=== PATIENT | female | born 1975 | race Caucasian/White ===

== ENCOUNTER 2024-02-06 02:33 | Inpatient (IN) | payer MEDICAID ==
[~2024-02-06] VITALS: Ht 162.6 cm; Wt 129.8 kg
[2024-02-06] VITALS (9 sets, daily range): BP systolic 108–125; BP diastolic 53–88; PULSE 74–83; RESP 13–21; TEMP 97.7–99.1; O2SAT 95–100
--- NOTE | 2024-02-06 03:31 | ED.PDOC ---
Altered Mental Status HPI Comments 48-year-old female who came to ER for altered level consciousness. Per EMS, patient was noted by family members to be acting normal two night to go. Patient was noted to be sleeping all day today, and appears confused at times. Blood sugar on scene was 147. Upon arrival to the ER, noted blood pressure 85/38 mm Hg. Patient appears confused and she has no subjective complaints. She does have a history of high blood pressure and chronic kidney failure Chief Complaint: ALOC Time Seen by MD: 03:30 Primary Care Provider: UNKNOWN Reviewed Notes: Nurses Notes Allergies: Coded Allergies: Erythromycin (Unverified Allergy, Unknown, 06/06/15) Meloxicam (Unverified Allergy, Unknown, 06/06/15) Penicillins (Unverified Allergy, Unknown, 06/06/15) Information Source: Patient Mode of Arrival: EMS Severity: Moderate Timing: Hours Duration: Since onset Prehospital treatment: None Quality: Decreased Alertness, Change in Behavior, Confusion Past Medical History PAST MEDICAL HISTORY: CKF, HTN Surgical History: Pt Confused H[employer] History: Pt Confused Family History Family History: Pt Confused Social History Smoker: Pt Confused Alcohol: Pt Confused Drugs: Pt Confused Lives In: Home Unable to Obtain due to: Altered Mental Status Physical Exam General Appearance: No Apparent Distress, Normal HEENT: Normal ENT Inspection, Pharynx Normal, TMs Normal Neck: Full Range of Motion, Non-Tender, Normal, Normal Inspection Respiratory: Chest Non-Tender, Lungs Clear, No Accessory Muscle Use, No Respiratory Distress, Normal Breath Sounds Cardiovascular: No Edema, No JVD, No Murmur, No Gallop, Normal Peripheral Pulses, Regular Rate/Rhythm Breast Exam: Deferred Gastrointestinal: No Organomegaly, Non Tender, No Pulsatile Mass, Normal Bowel Sounds, Soft Genitalia: Deferred Pelvic: Deferred Rectal: Deferred Extremities: No calf tenderness, Normal capillary refill, Normal inspection, Normal range of motion, Non-tender, No pedal edema Musculoskeletal : Apperance: Normal Neurologic: Alert, research & insights executive II-XII nml as Tested, No Motor Deficits, Normal Affect, Normal Mood, No Sensory Deficits Cerebellar Function: Normal Reflexes: Normal Skin: Dry, Normal Color, Warm Lymphatic: No Adenopathy Was a procedure done? Was a procedure done?: No Differential Diagnosis (ALOC) Differential Diagnosis: Encephalopathy, Hypoxemia, Seizure, CVA, Heart Failure, Renal Failure X-Ray, Labs, Meds, VS Vital Signs Date Time Temp Pulse Resp B/P (MAP) Pulse Ox O2 Delivery O2 Flow Rate FiO2 02/06/24 04:00 75 21 91/43 (59) 92 02/06/24 03:05 78 14 97 Nasal Cannula* 4 36 02/06/24 03:05 99.1 78 14 73/32 (46) 97 99.1 02/06/24 02:40 77 02/06/24 02:39 98.7 82 20 143/102 (116) 95 Lab Test 02/06/24 04:47 02/06/24 03:30 02/06/24 03:09 Range/Units White Blood Count Pending Red Blood Count Pending Hemoglobin Pending Hematocrit Pending Mean Corpuscular Volume Pending Mean Corpuscular Hemoglobin Pending Mean Corpuscular Hemoglobin Concent Pending Red Cell Distribution Width Pending Platelet Count Pending Mean Platelet Volume Pending Neutrophils (%) (Auto) Pending Lymphocytes (%) (Auto) Pending Monocytes (%) (Auto) Pending Basophils (%) (Auto) Pending Neutrophils # (Auto) Pending Lymphocytes # (Auto) Pending Monocytes # (Auto) Pending Troponin I High Sensitivity Pending 25 </=34 ng/L Sodium Level 135 L 136-145 mmol/L Potassium Level 3.9 3.5-5.1 mmol/L Chloride Level 106 98-107 mmol/L Carbon Dioxide Level 20 20-31 mmol/L Anion Gap 9 5-15 Blood Urea Nitrogen 32 H 9-23 mg/dL Creatinine 5.06 H 0.550-1.02 mg/dL Glomerular Filtration Rate Calc 10 >90 mL/min BUN/Creatinine Ratio 6.3 L 10.0-20.0 Serum Glucose 95 74-106 mg/dL Lactic Acid Level 1.4 0.4-2.0 mmol/L Calcium Level 8.8 8.7-10.4 mg/dL Total Bilirubin 0.3 0.2-1.0 mg/dL Aspartate Amino Transferase (AST) 127 H 13-40 U/L Alanine Aminotransferase (ALT) 28 7-40 U/L Alkaline Phosphatase 126 H 46-116 U/L Ammonia 21 11-32 umol/L Total Protein 7.0 5.7-8.2 g/dL Albumin 4.0 3.2-4.8 g/dL POC Glucose 100 70-106 mg/dl Current Medications Medications (Trade) Dose Ordered Sig/Sissy Route Start Time Stop Time Status Last Admin Sodium Chloride 1,000 ml @ 1,000 mls/hr Q1H ONCE IV 02/06/24 03:15 02/06/24 04:14 DC 02/06/24 03:34 Time of 1ST Reevaluation: 03:25 Reevaluation 1ST: Unchanged Patient Education/Counseling: Diagnosis, Treatment, Other (Patient altered) Family Education/Counseling: No Family Present Departure 1 Departure Time of Disposition: 05:18 (Patient with altered mental status and acute renal failure.If the patient's x-ray is concerning for volume overloadI reviewed the patient's EKGs concerning for sinus tachycardia. I reviewed patient's CBC and BNP is concerning for acute renal failure.Patient is critically ill and will be admitted to the hospital for further workup) Impression: Primary Impression: Acute renal failure Qualified Codes: N17.9 - Acute kidney failure, unspecified Additional Impressions: Metabolic encephalopathy Altered mental status Qualified Codes: R41.0 - Disorientation, unspecified Disposition: 09 ADMITTED INPATIENT Admit to: [facility] Condition: Guarded Critical Care Note Critical Care Time?: Yes (45 min-critical care time only) Critical care comment: Altered mental status Authorized and Performed by: Suzie Gamez MD Total critical care time: Approximately 38 minutes Due to a high probability of clinically significant, life threatening det erioration, the patient required my highest level of preparedness to intervene emergently and I personally spent this critical care time directly and personally managing the patient. This critical care time included obtaining a history; examining the patient; pulse oximetry; ordering and review of studies; arranging urgent treatment with development of a management plan; evaluation of patient's response to treatment; frequent reassessment; and, discussions with other providers. This critical care time was performed to assess and manage the high probability of imminent, life-threatening deterioration that could result in multi-organ failure. It was exclusive of separately billable procedures and treating other patients and teaching time. Please see my other sections and the rest of the note for further information on patient assessment and treatment. Stability Stability form required: No Heart Score Heart Score: Heart Score Response (Comments) Value History N/A 0 EKG N/A 0 Age N/A 0 Risk Factors N/A 0 Troponin N/A 0 Total 0 I personally scribed for SUZIE GAMEZ MD ([email or web address]) on 02/06/24 at 03:30. Electronically submitted by Javi Soares ([facility]). SUZIE GAMEZ MD Feb 06, 2024 03:30
[2024-02-06] MEDS: SODIUM CHLORIDE 0.9% 1,000 ML IV ONE ×2 (03:34→05:53)
[2024-02-06 03:53] LABS: Alanine Aminotransferase 28 U/L (7-40); Alkaline Phosphatase 126 U/L (46-116); Anion Gap 9 (5-15); Aspartate Aminotransferase 127 U/L (13-40); BUN/Creatinine Ratio 6.3 (10.0-20.0); Blood Urea Nitrogen 32 mg/dL (9-23); Calcium 8.8 mg/dL (8.7-10.4); Carbon Dioxide 20 mmol/L (20-31); Chloride 106 mmol/L (98-107); Glucose 95 mg/dL (74-106); Potassium 3.9 mmol/L (3.5-5.1); Sodium 135 mmol/L (136-145)
[2024-02-06 03:54] LABS: Bilirubin, Total 0.3 mg/dL (0.2-1.0)
--- NOTE | 2024-02-06 05:06 | DVH ---
CHEST RADIOGRAPH Indication:ams Technique: Single frontal view of the chest was obtained Comparison: None FINDINGS: Lines and Tubes: None Lungs: Mild pulmonary congestion. Pleura: No effusion. No pneumothorax. Cardiomediastinal contours: Unremarkable Bones: No acute osseous abnormality. IMPRESSION: 1. Mild pulmonary congestion.
--- NOTE | 2024-02-06 05:17 | DVH ---
EXAM: CT HEAD WITHOUT CONTRAST INDICATION: ams TECHNIQUE: CT of the head without intravenous contrast. Radiation Dose : 1. Head: CT Dose: CTDI volume is 68 mGy. Dose-length product is 1333.3 mGy*cm The dose indicators for CT are the volume Computed Tomography (CT) Dose Index (CTDIvol) and the Dose Length Product (DLP), and are measured in units of mGy and mGy-cm, respectively. These indicators are not patient dose, but values generated from the CT scanner acquisition factors. The report includes radiation exposure data for exposures received during this examination. COMPARISON: None FINDINGS: There is no evidence of acute intracranial hemorrhage, extra-axial collection, mass effect, midline s hift, herniation or hydrocephalus. The ventricles, sulci and cisterns are age appropriate. The tejada-white differentiation is intact. Moderate mucosal opacification of the sphenoid sinus. The surrounding soft tissues and osseous structures are unremarkable. IMPRESSION: No acute intracranial abnormality. Moderate mucosal opacification of the sphenoid sinus. Radiation optimization: All CT scans at this facility use at least one of these dose optimization rhonda hniques: automated exposure control mA and/or kV adjustment per patient size (includes targeted exam s where dose is matched to clinical indication) or iterative reconstruction.
[2024-02-06] MEDS: CEFEPIME 2GM/50ML NS 50 ML IV ONE (05:53)
[2024-02-06] MEDS ORDERED: IBUPROFEN 600 MG TAB PO PRN (07:30)
[2024-02-06] MEDS: SODIUM CHLORIDE 0.9% 1,000 ML IV SCH ×2 (07:30→09:41)
[2024-02-06] MEDS ORDERED: DOCUSATE SOD 100 MG CAP PO PRN (07:30)
--- NOTE | 2024-02-06 07:41 | DVHHP2 ---
History of Present Illness Reason for Visit: Hypotension History of Present Illness The patient is a 48 years old female with past medical history of hypertension and chronic kidney failure who presented to [facility] ED for evaluation of altered level of consciousness. As reported by EMS, patient was noted by family members to be acting abnormal, was noted to be sleeping all day today, and appears confused at times. Patient was seen and evaluated in the ED, laboratory data shows sodium 135, potassium three nine, BUN 32, creatinine 5.06, glucose 95, troponin 24, ammonia 21 AST 127, ALT 28, blood pressure 78/37, heart rate 68, temperature 99.1 F, O2 saturation 92% on oxygen. Head CT showed no acute intracranial abnormality, chest x-ray revealing mild pulmonary congestion. Patient was given fluid normal saline bolus, started on midodrine, please see medication orders section in the computer. On my assessment, patient remains lethargic, denies chest pain, no headache, no dizziness, no diaphoresis, currently on oxygen, no nausea, no vomiting, no fever, no chills. Patient was admitted for further evaluation medical management. Past Medical History CKF, HTN Past Surgical History Denies all surgeries Family History Reviewed, noncontributory to the management of this case. Past Social History The patient lives at home, denies smoking, alcohol or illicit drugs abuse. Review of Systems Constitutional: Yes: Weakness, Other (Fatigue); No: Fever, Chills, Sweats, Malaise Eyes: No: Pain, Vision change, Conjunctivae inflammation, Eyelid inflammation, Other, Redness ENT: No: Ear pain, Ear discharge, Nose pain, Nose discharge, Nose congestion, Mouth pain, Mouth swelling, Throat pain, Throat swelling, Other Respiratory: Shortness of breath, Other (SOB at rest); No: Cough, Dry, SOB with excertion, Wheezing, Hemoptysis, Pleuritic Pain, Sputum, Wheezing Cardiovascular: No: Chest Pain, Palpitations, Orthopnea, Paroxysmal Noc. Dyspn ea, Edema, Lt Headedness, Other Gastrointestinal: No: Nausea, Vomiting, Abdominal Pain, Diarrhea, Constipation, Melena, Hematochezia, Other Genitourinary: No Dysuria, No Frequency, No Incontinence, No Hematuria, No Retention, No Other Musculoskeletal: No: other, neck pain, shoulder pain, arm pain, back pain, hand pain, leg pain, foot pain Skin: No: Rash, Lesions, Jaundice, Bruising, Other Neurological: No: Weakness, Numbness, Incoordination, Change in speech, Confusion, Seizures, Other Allergies: Coded Allergies: Erythromycin (Unverified Allergy, Unknown, 06/06/15) Meloxicam (Unverified Allergy, Unknown, 06/06/15) Penicillins (Unverified Allergy, Unknown, 06/06/15) Medications Current Medications Medications Dose Ordered Sig/Sissy Route Start Time Stop Time Status Last Admin Dose Admin Sodium Chloride 1,000 ml @ 60 mls/hr [id number] IV 02/06/24 07:30 Acetaminophen/ Hydrocodone Bitart 1 tab Q4HP PRN PO 02/06/24 07:30 Ondansetron HCl 4 mg Q4HP PRN IV 02/06/24 07:30 Docusate Sodium 100 mg BIDPRN PRN PO 02/06/24 07:30 Ibuprofen 600 mg Q6HP PRN PO 02/06/24 07:30 Hold Midodrine 10 mg TID@0600,1200,1800 PO 02/06/24 12:00 Exam Vital Signs Vital Signs Date Time Temp Pulse Resp B/P (MAP) Pulse Ox O2 Delivery O2 Flow Rate FiO2 02/06/24 06:00 68 21 78/37 (51) 100 02/06/24 03:05 Nasal Cannula* 4 36 02/06/24 03:05 99.1 99.1 General Appearance: Alert, Cooperative, No acute distress, Other (Oriented x2) HEENT: Atraumatic, PERRLA, EOMI, Mucous membr. moist/pink Respiratory: Normal air movement, Other Cardiovascular: Regular rate, Normal S1, Normal S2, No murmurs Abdominal: Normal bowel sounds, Soft, No tenderness, No hepatospenomegaly, No masses Extremities: No clubbing, No cyanosis, No edema, Normal pulses, No tenderness/swelling Skin: No rashes, No breakdown, No significant lesion Neuro: Normal tone, Sensation intact, Cranial nerves 3-12 NL, Reflexes 2+, Other (Generalized weakness) Psych/Mental Status: Mood NL, Other (Altered mental status) Labs/Xrays Labs Test 02/06/24 04:47 02/06/24 03:30 02/06/24 03:09 Range/Units Troponin I High Sensitivity 24 </=34 ng/L Sodium Level 135 L 136-145 mmol/L Potassium Level 3.9 3.5-5.1 mmol/L Chloride Level 106 98-107 mmol/L Carbon Dioxide Level 20 20-31 mmol/L Anion Gap 9 5-15 Blood Urea Nitrogen 32 H 9-23 mg/dL Creatinine 5.06 H 0.550-1.02 mg/dL Glomerular Filtration Rate Calc 10 >90 mL/min BUN/Creatinine Ratio 6.3 L 10.0-20.0 Serum Glucose 95 74-106 mg/dL Lactic Acid Level 1.4 0.4-2.0 mmol/L Calcium Level 8.8 8.7-10.4 mg/dL Total Bilirubin 0.3 0.2-1.0 mg/dL Aspartate Amino Transferase (AST) 127 H 13-40 U/L Alanine Aminotransferase (ALT) 28 7-40 U/L Alkaline Phosphatase 126 H 46-116 U/L Ammonia 21 11-32 umol/L Total Protein 7.0 5.7-8.2 g/dL Albumin 4.0 3.2-4.8 g/dL POC Glucose 100 70-106 mg/dl PATIENT: ELIEZER MORENO ACCT: [id number] UNIT: [id number] : 1975 LOC: ER ROOM / BED: / AGE / SEX: 48 / F ADM STATUS: REG ER SERVICE 2 ORDERING PHYSICIAN: SUZIE CORDOVA MD PROCEDURE(s): HWOCT - HEAD WITHOUT CONTRAST REASON: [facility] ORDER NUMBER(s): [id number], ACCESSION NUMBER(s): [id number] EXAM: CT HEAD WITHOUT CONTRAST INDICATION: ams TECHNIQUE: CT of the head without intravenous contrast. Radiation Dose : 1. Head: CT Dose: CTDI volume is 68 mGy. Dose-length product is 1333.3 mGy*cm The dose indicators for CT are the volume Computed Tomography (CT) Dose Index (CTDIvol) and the Dose Length Product (DLP), and are measured in units of mGy and mGy-cm, respectively. These indicators are not patient dose, but values generated from the CT scanner acquisition factors. The report includes radiation exposure data for exposures received during this examination. COMPARISON: None FINDINGS: There is no evidence of acute intracranial hemorrhage, extra-axial collection, mass effect, midline shift, herniation or hydrocephalus. The ventricles, sulci and cisterns are age appropriate. The tejada-white differentiation is intact. Moderate mucosal opacification of the sphenoid sinus. The surrounding soft tissues and osseous structures are unremarkable. IMPRESSION: No acute intracranial abnormality. Moderate mucosal opacification of the sphenoid sinus. Assessment/Plan Assessment/Plan Acute renal failure Hypotension Metabolic encephalopathy Altered mental status Disorientation, unspecified Acute chronic renal failure Plan 1. Admit to step-down unit 2. Breathing treatment 3. Pain control management 4. Management of fluids and electrolytes 5. Consultation for Cardiology/Nephrology 6. Diagnostic tests head CT 7. DVT prophylaxis-on aspirin 8. Repeat labs CBC, CMP in a.m. 9. Continue with current medical management 10. Treatment plan discussed with patient and RN. Patient verbalized understanding. Plan discussed with: Patient, Other (RN) My Orders Orders - KIRBY MARQUES DNP Procedure Category Date Status Time * Cardiology Consult CONS 02/06/24 Transmitted 07:19 *[facility] CONS 02/06/24 Transmitted -[place] 07:19 Complete Blood Count LAB 02/06/24 Logged 07:19 Comprehensive LAB 02/06/24 Logged Metabolic Panel 07:19 Allergies CARMEN 02/06/24 In Process 07:19 Code Status CODE 02/06/24 Transmitted 07:19 Renal DIET 02/06/24 Transmitted Standard(2gna,3gk,Lopho) Breakfast Sodium Chloride 0.9% PHA 02/06/24 In Process 07:30 Oxygen Per Hour RT 02/06/24 Transmitted 07:19 Hydrocodone-Acet PHA 02/06/24 In Process 5/325mg Tab ([place] 07:30 Ondansetron Hcl PHA 02/06/24 In Process (Zofran) 07:30 Docusate Sodium PHA 02/06/24 In Process Capsule (Colace 07:30 Fall Risk Precautions CARMEN 02/06/[address] 07:19 Complete Blood Count LAB 02/07/24 Verified 04:00 Comprehensive LAB 02/07/24 Verified Metabolic Panel 04:00 Condition: Serious CARMEN 02/06/24 In Process 07:19 Sequential CARMEN 02/06/24 In Process Compression Device Ibuprofen Tablet PHA 02/06/24 In Process (Motrin Tablet) 07:30 Midodrine Tablet PHA 02/06/24 In Process (Proamatine Tablet) 12:00 Problem List: (1) Acute renal failure (2) Hypotension (3) Altered mental status (4) Metabolic encephalopathy (5) Acute on chronic renal failure (6) Disorientation, unspecified Date of Service: Feb 06, 2024 Billing Provider: KIRBY MARQUES DNP Common Visit Codes: 39883-AMLVPOM INP/OBS CARE (HIGH) KIRBY MARQUES DNP Feb 06, 2024 07:41
[2024-02-06] MEDS ORDERED: NITROGLYCERIN 0.4 MG SL TAB SL PRN (07:45)
[2024-02-06] MEDS: MIDODRINE HCL 10 MG TAB PO SCH (07:48)
[2024-02-06] MEDS: MIDODRINE HCL 10 MG TAB PO ONE (07:49)
[2024-02-06 08:57] LABS: Alanine Aminotransferase 38 U/L (7-40); Albumin 3.6 g/dL (3.2-4.8); Alkaline Phosphatase 123 U/L (46-116); Anion Gap 11 (5-15); Aspartate Aminotransferase 175 U/L (13-40); Bilirubin, Total 0.2 mg/dL (0.2-1.0); Blood Urea Nitrogen 29 mg/dL (9-23); Calcium 8.2 mg/dL (8.7-10.4); Carbon Dioxide 18 mmol/L (20-31); Chloride 107 mmol/L (98-107); Glucose 108 mg/dL (74-106); Sodium 136 mmol/L (136-145); Total Protein 6.6 g/dL (5.7-8.2)
[2024-02-06 09:26] LABS: Magnesium 1.9 mg/dL (1.6-2.6)
[2024-02-06 09:27] LABS: Phosphorus 7.6 mg/dL (2.4-5.1)
[2024-02-06] MEDS: ACETAMINOPHEN 325 MG TAB PO ONE (09:42)
[2024-02-06 09:49] LABS: Urine Blood 3+ /uL (Negative); Urine Clarity Ex.Turbid (Clear); Urine Color Light-Orange (Yellow); Urine Protein, UAD 2+ (Negative); Urine Specific Gravity 1.024 (1.001-1.035); Urine Urobilinogen Normal (Negative); Urine pH 5.5 (5.0-9.0)
[2024-02-06 09:52] LABS: Amphetamine Screen, Urine Neg (NEGATIVE); Protein, Urine 221.3 mg/dL (1-14)
[2024-02-06 09:53] LABS: Barbiturate Scree,Urine Neg (NEGATIVE); Benzodiazephine Screen, Urine Neg (NEGATIVE); Cocaine Screen, Urine Neg (NEGATIVE); Opiate Scree,Urine Neg (NEGATIVE); Phencyclidine Screen, Urine Neg (NEGATIVE)
[2024-02-06 09:54] LABS: Cannabinoid Screen, Urine Neg (NEGATIVE); Creatinine, Urine 201.52 mg/dL (30.0-125.0)
[2024-02-06 09:57] LABS: Urine Bacteria MANY /hpf (None Seen); Urine WBC MANY /hpf (0 - 5)
[2024-02-06 09:58] LABS: Urine Mucus FEW (None Seen)
[2024-02-06 10:04] LABS: Basophils # (auto) 0.1 10 ^3/uL (0-0.2); Platelet Count (auto) 407 10^3/uL (140-450)
[2024-02-06 10:07] LABS: Basophils % (auto) 0.4 % (0.0-2.0); Eosinophils # (auto) 0 10 ^3/uL (0-0.8); Eosinophils % (auto) 0.2 % (0.0-7.0); Hematocrit 22.6 % (36.0-46.0); Lymphocytes % (auto) 10.2 % (10.0-50.0); Mean Corpuscular Hemoglobin 20.4 pg (28.0-32.0); Mean Corpuscular Hgb Conc. 28.8 g/dL (32.0-36.0); Mean Corpuscular Volume 70.9 fL (80.0-100.0); Monocytes # (auto) 1.3 10 ^3/uL (0-1.3); Monocytes % (auto) 6.5 % (0.0-12.0); Neutrophils # (auto) 16.6 10 ^3/uL (1.6-8.6); Neutrophils % (auto) 82.7 % (37.0-80.0); Nucleated Red Blood Cells % 0.3 %; Red Blood Cells 3.19 10^6/uL (4.0-5.20)
[2024-02-06] MEDS: LIDOCAINE 5% TOPICAL PATCH TOP ONE (10:15)
--- NOTE | 2024-02-06 10:15 | ECG ---
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
--- NOTE | 2024-02-06 10:15 | DVH ---
INDICATION: 48 years old, Female; KIET on CKD. TECHNIQUE: Multiple real-time sonographic images of the kidneys and bladder were obtained. COMPARISON: None FINDINGS: The right kidney measures 13 cm in length, which is normal in size. There is normal echogenicity of t he right kidney. No hydronephrosis. The left kidney measures 13 cm in length, which is normal in size. There is normal echogenicity of th e left kidney. No hydronephrosis. No large intraluminal masses are seen in the bladder. IMPRESSION: 1. Normal sonographic appearance of the kidneys. No hydronephrosis.
[2024-02-06 10:19] LABS: Red Cell Distribution Width 22.4 % (11.8-14.3)
[2024-02-06 10:20] LABS: Hemoglobin 6.5 g/dL (12.2-16.2)
[2024-02-06] MEDS: ACETAMINOPHEN 500 MG TAB PO ONE (10:30)
[2024-02-06] MEDS: diphenhdrAMINE HCL 12.5 MG/5 ML UD PO ONE (10:30)
[2024-02-06 10:31] LABS: INR 1.05 (0.9-1.15); Partial Thromboplastin Time 22.6 SEC (24.5-34.5); Prothrombin Time 11.1 sec (9.3-11.8)
[2024-02-06 10:47] LABS: Anisocytosis Slight; Hypochromia Moderate; Platelet Estimate Adequate
[2024-02-06 10:49] LABS: Tear Drop Cells FEW
--- NOTE | 2024-02-06 11:00 | DVHCONRES ---
Date Seen: Feb 06, 2024 Resident Creating Document: JHAJJ,AVERYUNEET RESIDENT Referring Physician SAHRA Mccarthy Reason for Consultation Acute on chronic renal failure History of Present Illness Patient is a 48-year-old female with a past medical history of hypertension was brought to the ED with the family for chief complaint of altered level of consciousness. Patient was reported to be behaving abnormally and somnolent all day yesterday and confused at times during the day. Patient reported that she was recently discharged from [facility] after being admitted for lower back pain and knee pain. Patient reported that she was feeling weak yesterday. Head CT was done which did not show any acute intracranial abnormality. Chest x-ray shows cardiomegaly and pulmonary venous congestion. Initial labs show WBC 23480/mm3 with elevated neutrophil count at 82.7%, hemoglobin 6.5 grams/deciliter, hematocrit 22.6, platelets 120862/mm3, low MCV and MCH. BMP showed serum sodium 135, potassium 3.9, BUN 32, creatinine 5.06, phosphorus 7.6, magnesium 1.9, TSH 0.48, elevated triglycerides at 160. Past Medical History Reported past medical history of hypertension Past Surgical History Lower back surgery about 2 months ago Social History Lives with family, denies smoking, alcohol or drug use Allergies: Coded Allergies: Erythromycin (Unverified Allergy, Unknown, 06/06/15) Meloxicam (Unverified Allergy, Unknown, 06/06/15) Penicillins (Unverified Allergy, Unknown, 06/06/15) Current Medications Current Medications Medications (Trade) Dose Ordered Sig/Sissy Route PRN Reason Start Time Stop Time Status Last Admin Sodium Chloride 1,000 ml @ 60 mls/hr [id number] IV 02/06/24 07:30 02/06/24 09:14 DC Acetaminophen/ Hydrocodone Bitart ([place] 5/325MG Tab) 1 tab Q4HP PRN PO MODERATE PAIN (4-6 PAIN SCALE) 02/06/24 07:30 Ondansetron HCl (Zofran) 4 mg Q4HP PRN IV NAUSEA / VOMITING 02/06/24 07:30 Docusate Sodium (Colace Capsule) 100 mg BIDPRN PRN PO FOR CONSTIPATION 02/06/24 07:30 Ibuprofen (Motrin Tablet) 600 mg Q6HP PRN PO PAIN SCALE 1-3 OR TEMP>100.4 02/06/24 07:30 02/06/24 10:06 DC Midodrine (Proamatine Tablet) 10 mg TID@0600,1200,1800 PO 02/06/24 12:00 02/06/24 10:06 DC Nitroglycerin (Ntrostat Sublingual) 0.4 mg Q5MINP PRN SL FOR CHEST PAIN 02/06/24 07:45 Morphine Sulfate 2 mg Q30M PRN IV FOR CHEST PAIN 02/06/24 07:45 Sodium Chloride 1,000 ml @ 125 mls/hr Q8H IV 02/06/24 09:15 02/06/24 09:41 Acetaminophen (Tylenol Tablet) 500 mg Q6HP PRN PO MODERATE PAIN (4-6 PAIN SCALE) 02/06/24 10:15 Lidocaine (Lidoderm 5% Topical Patch) 1 patch DAILY TOP 02/07/24 10:00 Review of Systems Patient seen and examined at the bedside. Patient is alert and oriented to time, place and person. At the time of examination patient's blood pressure is 71/19 mmHg which has improved to 94/52 --> 101/54mmhg, heart rate 75 per minute regular, SpO2 97% on 2 L oxygen via nasal cannula., temperature 99 F Patient reports of lower back pain and pain in the knees. Patient does not report of any shortness of breath, chest pain, headache, abdominal pain, no burning pain on urination, no fever, no chills. Urinalysis shows 2+ protein, 3+ leukocyte esterase, many WBCs, many bacteria. Jaramillo's catheter is shows 20 mL cloudy urin e. Patient does not report of suprapubic pain or tenderness. Vital Signs Vital Signs Date Time Temp Pulse Resp B/P (MAP) Pulse Ox O2 Delivery O2 Flow Rate FiO2 02/06/24 10:00 76 14 101/54 (70) 84 02/06/24 07:30 Nasal Cannula* 3 32 02/06/24 03:05 99.1 99.1 Physical Exam Physical Examination Gen - no pallor, no icterus, no cyanosis, no clubbing, no LAD, no edema . Skin - Patients skin is warm and dry. HEENT - normocephalic, atraumatic, mucous membranes are dry. Neck - full ROM, no LAD, no JVD Pulmonary - B/L vesicular breath sounds. no crackles , no wheezing, no stridor. cardiovascular - normal S1,S2 heard. no murmurs heard. peripheral pulses normal radial 2+. capillary refill normal <2 secs. GI - soft abdomen without tenderness to palpation . no hepatospleenomegaly. Bowel sounds+. Neurological - Patient is A/O X 3 . Bilateral upper extremity strength 5/5, right lower extremity strength 3/5, left lower extremity strength 4/5, no facial droop, normal speech, no tremor, no sensory deficiets. Labs/Diagnostic Data Labs Test 02/06/24 09:39 02/06/24 08:00 02/06/24 07:42 02/06/24 03:30 Range/Units White Blood Count 20.0 H 4.4-10.8 10^3/uL Red Blood Count 3.19 L 4.0-5.20 10^6/uL Hemoglobin 6.5 *L 12.2-16.2 g/dL Hematocrit 22.6 L 36.0-46.0 % Mean Corpuscular Volume 70.9 L 80.0-100.0 fL Mean Corpuscular Hemoglobin 20.4 L 28.0-32.0 pg Mean Corpuscular Hemoglobin Concent 28.8 L 32.0-36.0 g/dL Red Cell Distribution Width 22.4 H 11.8-14.3 % Platelet Count 407 140-450 10^3/uL Mean Platelet Volume 7.5 6.9-10.8 fL Neutrophils (%) (Auto) 82.7 H 37.0-80.0 % Lymphocytes (%) (Auto) 10.2 10.0-50.0 % Monocytes (%) (Auto) 6.5 0.0-12.0 % Eosinophils (%) (Auto) 0.2 0.0-7.0 % Basophils (%) (Auto) 0.4 0.0-2.0 % Neutrophils # (Auto) 16.6 H 1.6-8.6 10 ^3/uL Lymphocytes # (Auto) 2.0 0.4-5.4 10 ^3/uL Monocytes # (Auto) 1.3 0-1.3 10 ^3/uL Eosinophils # (Auto) 0 0-0.8 10 ^3/uL Basophils # (Auto) 0.1 0-0.2 10 ^3/uL Nucleated Red Blood Cells 0.3 % Prothrombin Time 11.1 9.3-11.8 sec Prothrombin Time INR 1.05 0.9-1.15 Activated Partial Thromboplast Time 22.6 L 24.5-34.5 SEC Urine Color Light-orange Yellow Urine Clarity Ex.turbid Clear Urine pH 5.5 5.0-9.0 Urine Specific [place] 1.024 1.001-1.035 Urine Protein 2+ H Negative Urine Ketones Negative Negative Urine Blood 3+ H Negative /uL Urine Nitrite Negative Negative Urine Bilirubin Negative Negative Urine Urobilinogen Normal Negative mg/dL Urine Leukocyte Esterase 3+ Negative /uL Urine RBC Moderate 0 - 4 /hpf Urine WBC Many 0 - 5 /hpf Urine Squamous Epithelial Cells Few <5 /hpf Urine Bacteria Many H None Seen /hpf Urine Mucus Few None Seen Urine Creatinine 201.52 H 30.0-125.0 mg/dL Urine Sodium 48 40-220 mmol/L Urine Glucose Normal Normal mg/dL Urine Total Protein 221.3 H 1-14 mg/dL Urine Opiates Screen Neg NEGATIVE Urine Fentanyl Screen Neg NEGATIVE Urine Barbiturates Screen Neg NEGATIVE Urine Phencyclidine Screen Neg NEGATIVE Urine Amphetamines Screen Neg NEGATIVE Urine Benzodiazepines Screen Neg NEGATIVE Urine Cocaine Screen Neg NEGATIVE Urine Cannabinoids Screen Neg NEGATIVE Sodium Level 136 136-145 mmol/L Potassium Level 4.0 3.5-5.1 mmol/L Chloride Level 107 98-107 mmol/L Carbon Dioxide Level 18 L 20-31 mmol/L Anion Gap 11 5-15 Blood Urea Nitrogen 29 H 9-23 mg/dL Creatinine 4.16 H 0.550-1.02 mg/dL Glomerular Filtration Rate Calc 12 >90 mL/min BUN/Creatinine Ratio 7.0 L 10.0-20.0 Serum Glucose 108 H 74-106 mg/dL Calcium Level 8.2 L 8.7-10.4 mg/dL Phosphorus Level 7.6 H 2.4-5.1 mg/dL Magnesium Level 1.9 1.6-2.6 mg/dL Total Bilirubin 0.2 0.2-1.0 mg/dL Aspartate Amino Transferase (AST) 175 H 13-40 U/L Alanine Aminotransferase (ALT) 38 7-40 U/L Alkaline Phosphatase 123 H 46-116 U/L Troponin I High Sensitivity 22 </=34 ng/L Total Protein 6.6 5.7-8.2 g/dL Albumin 3.6 3.2-4.8 g/dL Triglycerides Level 160 H < 150 mg/dL Cholesterol Level 127 < 200 mg/dL LDL Cholesterol 60 < 100 mg/dL HDL Cholesterol 36 L 40-59 mg/dL Thyroid Stimulating Hormone (TSH) 0.48 L 0.55-4.78 uIU/mL Lactic Acid Level 1.4 0.4-2.0 mmol/L Ammonia 21 11-32 umol/L Test 02/06/24 03:09 Range/Units POC Glucose 100 70-106 mg/dl Plan/Recommendation Assessment and plan # Sepsis likely d/[place] - [place] [address]/mm3 - SBP less than 90 - KIET - patient is on 3L/min O2 # KIET on ?CKD- Prerenal likely d/t VMN dehydration, sepsis, ?bleeding - serum creatinine 5.06-->4.16 - BUN 32-->29 - urine creatinine 201.52, urine sodium 48 - FENa 0.7% - phosphorus 7.6 - potassium 4 - patient has been given 3.5 L NS bolus - patient is currently running NS at 125 mL/hour - renal ultrasound shows right kidney 13 cm in length, left kidney 13 cm in length, normal echogenicity of bilateral kidneys, no bilateral hydronephrosis. - avoid nephrotoxic medication - on renal diet # Anemia ?acute bleed ? chronic TERESA - Hgb - 6.5 - 1 unit PRBC to be transfused - retic count 1.87 - LDH 406 - iron 9, ferritin 18.3, %saturation 2.8 # back pain status post reported spine surgery - lidocaine patch and acetaminophen for pain relief Goals of care discussed with the patient for more than 20 mins. Full code Plan discussed with Plan discussed with: Patient, Other (RN ( Ama )) ADDENDUM ADDENDUM ADDENDUM seen with resident KIET , previous normal function severe volume depletion IVF, PRBC , ABX for UTI DEEPALI ALMEIDA RESIDENT Feb 06, 2024 11:00 EDEN MCINTOSH MD Feb 06, 2024 21:07
[2024-02-06 11:36] LABS: % Iron Saturation 2.8 % (15-50)
[2024-02-06 11:39] LABS: Ferritin 18.3 ng/mL (10-291); Folate (Folic Acid) 13.87 ng/mL (>5.38)
[2024-02-06] MEDS: SODIUM CHLORIDE 0.9% 2,000 ML IV ONE (13:14)
--- NOTE | 2024-02-06 14:43 | DVHSR ---
APPROVED REPORT EXAM: Two-dimensional and M-mode echocardiogram with Doppler and color Doppler. Blood Pressure: 82/37 mmHg INDICATION Hypertension Cardiomegaly on CXR RISK FACTORS Height: 64, Weight: 300 DIMENSIONS LVDd (3.8-5.7cm)LA (2D)4.6 (1.9-4.0cm)Aortic Root3.4 (2.0-3.7cm) LVDs (2.5-4.0cm)LA (MM) (1.9-4.0cm)Aortic Cusp Exc1.6 (1.5-2.0cm) EF (%) 70.0 (55-70%)Rt. Atrium4.4 (1.9-4.0cm)Asc. Aorta cm Mitral Valve MitralMitral Stenosis E wave0.89m/sMV Mean GR.mmHg A wave0.65m/sMV Peak GR.mmHg E/A ratio1.42D MVAcm2 DECEL [id number] 1/2 [id number] IVRTmsDop MVA2.56cm2 Aortic Valve Aortic ValveAortic Stenosis V11.55m/Ivan Mean GR.10mmHg V22.26m/Ivan Peak GR.20mmHg LVOT Diameter2.4 (1.8-2.4cm)Doppler AVA3.10cm2 Pulmonic Valve V21.61m/s Tricuspid Valve TR Velocity3.53m/s [id number] Other Information Technically limited study due to body habitus and patient position. Conclusion Normal left ventricular size and dimension. Normal left ventricular systolic function estimated ejec tion fraction 55%. There is a grade 1 diastolic disorder. Normal right ventricular size and dimension. Normal right ventricular systolic function. Severely e levated right ventricular systolic pressure 67 mm of mercury Normal biatrial size and dimension. Normal aortic valve structure and function. There is [id number] mitral valve regurgitation There is moderately severe tricuspid valve regurgitation The pulmonary valve is grossly normal. No pericardial effusion.
--- NOTE | 2024-02-06 15:06 | DVHINCON2 ---
Date Seen: Feb 06, 2024 Referring Physician Hugo Mccarthy Reason for Consultation Hypotension History of Present Illness Nell Clark this is a 48-year-old female patient who presents to the ED brought by her daughter with chief complaint of altered mental status and fatigue. Patient is a poor historian, could not communicate with daughter at this time and there is no contact information. Could not obtain review of sy stems due to clinical status. Past medical history: Hypertension, lower back pain post up lumbar surgery (does not know reason why), hard of hearing, patient is currently and mobile in bed due to bilateral knee arthritis planning on completing surgery eventually Surgical history: Lower back surgery in [facility] on November 2023 Family history: Noncontributory Social history: Lives with daughter in [place]. Denies current tobacco, alcohol and other drug abuse Allergies: Erythromycin, meloxicam, penicillin Home medication: Does not recall Patient seen and examined at bedside. Currently has no new complaints, she is oriented in person and place but not in time. Past Medical History Per HPI Past Surgical History Per HPI Family History Per HPI Social History Per HPI Allergies: Coded Allergies: Erythromycin (Unverified Allergy, Unknown, 06/06/15) Meloxicam (Unverified Allergy, Unknown, 06/06/15) Penicillins (Unverified Allergy, Unknown, 06/06/15) Current Medications Current Medications Medications (Trade) Dose Ordered Sig/Sissy Route PRN Reason Start Time Stop Time Status Last Admin Sodium Chloride 1,000 ml @ 60 mls/hr [id number] IV 02/06/24 07:30 02/06/24 09:14 DC Acetaminophen/ Hydrocodone Bitart ([place] 5/325MG Tab) 1 tab Q4HP PRN PO MODERATE PAIN (4-6 PAIN SCALE) 02/06/24 07:30 Ondansetron HCl (Zofran) 4 mg Q4HP PRN IV NAUSEA / VOMITING 02/06/24 07:30 Docusate Sodium (Colace Capsule) 100 mg BIDPRN PRN PO FOR CONSTIPATION 02/06/24 07:30 Ibuprofen (Motrin Tablet) 600 mg Q6HP PRN PO PAIN SCALE 1-3 OR TEMP>100.4 02/06/24 07:30 02/06/24 10:06 DC Midodrine (Proamatine Tablet) 10 mg TID@0600,1200,1800 PO 02/06/24 12:00 02/06/24 10:06 DC Nitroglycerin (Ntrostat Sublingual) 0.4 mg Q5MINP PRN SL FOR CHEST PAIN 02/06/24 07:45 Morphine Sulfate 2 mg Q30M PRN IV FOR CHEST PAIN 02/06/24 07:45 Sodium Chloride 1,000 ml @ 125 mls/hr Q8H IV 02/06/24 09:15 02/06/24 09:41 Acetaminophen (Tylenol Tablet) 500 mg Q6HP PRN PO MODERATE PAIN (4-6 PAIN SCALE) 02/06/24 10:15 Lidocaine (Lidoderm 5% Topical Patch) 1 patch DAILY TOP 02/07/24 10:00 Review of Systems Per HPI Vital Signs Vital Signs Date Time Temp Pulse Resp B/P (MAP) Pulse Ox O2 Delivery O2 Flow Rate FiO2 02/06/24 13:40 67 13 96/52 (67) 96 02/06/24 10:00 98.7 98.7 02/06/24 07:30 Nasal Cannula* 3 32 Physical Exam Patient lying in bed, in no acute distress General: Damon, obese, afebrile, mucosae are dry, pale conjunctivae, hard of hearing Cardiovascular: Normal S1 and S2. No murmurs, gallops or rubs Respiratory: Normal ventilation mechanics. Clear lung sounds on auscultation Abdomen: Soft, nontender, no organomegaly, normal bowel sounds MSK/skin: Mobilizes 4 limbs. Skin is dry and warm Neurological: Oriented in 2 spheres (not in time). No motor no sensitive deficits. Pupils are isocoric and reactive Labs/Diagnostic Data Labs Test 02/06/24 13:52 02/06/24 10:49 02/06/24 09:39 02/06/24 08:00 Range/Units Reticulocyte Count (auto) 1.87 H 0.5-1.5 % Fibrinogen 453 H 177-375 mg/dL Iron Level 9 L 50-170 ug/dL Total Iron Binding Capacity 327 250-425 ug/dL Percent Iron Saturation 2.8 L 15-50 % Ferritin 18.3 10-291 ng/mL Lactate Dehydrogenase 406 H 120-246 U/L Folic Acid 13.87 >5.38 ng/mL White Blood Count 20.0 H 4.4-10.8 10^3/uL Red Blood Count 3.19 L 4.0-5.20 10^6/uL Hemoglobin 6.5 *L 12.2-16.2 g/dL Hematocrit 22.6 L 36.0-46.0 % Mean Corpuscular Volume 70.9 L 80.0-100.0 fL Mean Corpuscular Hemoglobin 20.4 L 28.0-32.0 pg Mean Corpuscular Hemoglobin Concent 28.8 L 32.0-36.0 g/dL Red Cell Distribution Width 22.4 H 11.8-14.3 % Platelet Count 407 140-450 10^3/uL Mean Platelet Volume 7.5 6.9-10.8 fL Neutrophils (%) (Auto) 82.7 H 37.0-80.0 % Lymphocytes (%) (Auto) 10.2 10.0-50.0 % Monocytes (%) (Auto) 6.5 0.0-12.0 % Eosinophils (%) (Auto) 0.2 0.0-7.0 % Basophils (%) (Auto) 0.4 0.0-2.0 % Neutrophils # (Auto) 16.6 H 1.6-8.6 10 ^3/uL Lymphocytes # (Auto) 2.0 0.4-5.4 10 ^3/uL Monocytes # (Auto) 1.3 0-1.3 10 ^3/uL Eosinophils # (Auto) 0 0-0.8 10 ^3/uL Basophils # (Auto) 0.1 0-0.2 10 ^3/uL Nucleated Red Blood Cells 0.3 % Platelet Estimate Adequate Hypochromasia (manual) Moderate Anisocytosis (manual) Slight Microcytosis Moderate Tear Drop Cells Few Prothrombin Time 11.1 9.3-11.8 sec Prothrombin Time INR 1.05 0.9-1.15 Activated Partial Thromboplast Time 22.6 L 24.5-34.5 SEC Vitamin B12 Level 358 211-911 pg/mL Vitamin D 25-Hydroxy 6.9 L 30.0-100 ng/mL Urine Color Light-orange Yellow Urine Clarity Ex.turbid Clear Urine pH 5.5 5.0-9.0 Urine Specific [place] 1.024 1.001-1.035 Urine Protein 2+ H Negative Urine Ketones Negative Negative Urine Blood 3+ H Negative /uL Urine Nitrite Negative Negative Urine Bilirubin Negative Negative Urine Urobilinogen Normal Negative mg/dL Urine Leukocyte Esterase 3+ Negative /uL Urine RBC Moderate 0 - 4 /hpf Urine WBC Many 0 - 5 /hpf Urine Squamous Epithelial Cells Few <5 /hpf Urine Bacteria Many H None Seen /hpf Urine Mucus Few None Seen Urine Creatinine 201.52 H 30.0-125.0 mg/dL Urine Sodium 48 40-220 mmol/L Urine Glucose Normal Normal mg/dL Urine Total Protein 221.3 H 1-14 mg/dL Urine Opiates Screen Neg NEGATIVE Urine Fentanyl Screen Neg NEGATIVE Urine Barbiturates Screen Neg NEGATIVE Urine Phencyclidine Screen Neg NEGATIVE Urine Amphetamines Screen Neg NEGATIVE Urine Benzodiazepines Screen Neg NEGATIVE Urine Cocaine Screen Neg NEGATIVE Urine Cannabinoids Screen Neg NEGATIVE Test 02/06/24 07:42 02/06/24 03:30 02/06/24 03:09 Range/Units Sodium Level 136 136-145 mmol/L Potassium Level 4.0 3.5-5.1 mmol/L Chloride Level 107 98-107 mmol/L Carbon Dioxide Level 18 L 20-31 mmol/L Anion Gap 11 5-15 Blood Urea Nitrogen 29 H 9-23 mg/dL Creatinine 4.16 H 0.550-1.02 mg/dL Glomerular Filtration Rate Calc 12 >90 mL/min BUN/Creatinine Ratio 7.0 L 10.0-20.0 Serum Glucose 108 H 74-106 mg/dL Calcium Level 8.2 L 8.7-10.4 mg/dL Phosphorus Level 7.6 H 2.4-5.1 mg/dL Magnesium Level 1.9 1.6-2.6 mg/dL Total Bilirubin 0.2 0.2-1.0 mg/dL Aspartate Amino Transferase (AST) 175 H 13-40 U/L Alanine Aminotransferase (ALT) 38 7-40 U/L Alkaline Phosphatase 123 H 46-116 U/L Troponin I High Sensitivity 22 </=34 ng/L Total Protein 6.6 5.7-8.2 g/dL Albumin 3.6 3.2-4.8 g/dL Triglycerides Level 160 H < 150 mg/dL Cholesterol Level 127 < 200 mg/dL LDL Cholesterol 60 < 100 mg/dL HDL Cholesterol 36 L 40-59 mg/dL Thyroid Stimulating Hormone (TSH) 0.48 L 0.55-4.78 uIU/mL Lactic Acid Level 1.4 0.4-2.0 mmol/L Ammonia 21 11-32 umol/L POC Glucose 100 70-106 mg/dl Assessment Metabolic encephalopathy likely due to sepsis Acute respiratory failure Mixed shock (septic and hypovolemic) - received midodrine (currently discontinued) Severe anemia - ordered 1 unit of red blood cells Sepsis probably secondary to UTI KIET hemodynamically mediated (baseline creatinine in 2016 0.65) Morbidly obese Bed-bound due to bilateral osteoarthritis of knee Plan/Recommendation Cardiology consulted for hypotension, patient was severely anemic and septic, partially responded to fluid resuscitation. Indicated 1 unit of red blood cells at this time. Echocardiogram: LVEF 55%, grade 1 diastolic dysfunction, RVSP 67 mmHg, rest of echocardiogram within normal limits Optimize loading conditions on patient Avoid antihypertensive medication at this point. IV antibiotics per hospitalist Suggest evaluating site of bleeding Appreciate nephrology input Patient is bed-bound, but could not start DVT prophylaxis due to anemia. Currently on SCDs Discussed plan with Dr. Andrews, patient and nurses: Indicated 1 unit of red blood cell, suggest empiric IV antibiotic (hospitalist started her on cefepime), awaiting results of cultures. Discontinuing midodrine, recommend starting norepinephrine is patient's mean arterial blood pressure is below 65mmHg. Patient's hypotension secondary to anemia/sepsis, no cardiological intervention needed during this admission. Cardiology will sign off the case. Please reconsult if necessary, thank you. Plan discussed with: Patient, Other (Nurses) Date of Service: Feb 06, 2024 Billing Provider: NASRIN ANDREWS MD Cardiology Common Codes: [id number] INP/OBS CARE (High), [id number] CARE 30-74 MIN HERMAN LION RESIDENT Feb 06, 2024 15:06
[2024-02-06] MEDS: ACETAMINOPHEN 500 MG TAB PO PRN (15:45)
[2024-02-06] MEDS: ONDANSETRON HCL 4 MG/2 ML VIAL IV PRN (22:14)
[2024-02-06] MEDS: MORPHINE SULFATE INJ 2 MG/ml SYRG IV PRN (22:15)
[2024-02-06 22:25] LABS: Hematocrit 22.1 % (36.0-46.0)
[2024-02-06 22:28] LABS: Hemoglobin 6.6 g/dL (12.2-16.2)
[2024-02-07] VITALS (8 sets, daily range): BP systolic 118–132; BP diastolic 44–87; PULSE 75–89; RESP 16–20; TEMP 97.4–99.5; O2SAT 96–99
[2024-02-07] MEDS: HYDROcodone-ACET 5/325MG TAB PO PRN (02:33)
[2024-02-07] MEDS: MORPHINE SULFATE INJ 2 MG/ml SYRG IV PRN (06:43)
[2024-02-07 06:52] LABS: Basophils # (auto) 0.1 10 ^3/uL (0-0.2); Basophils % (auto) 0.4 % (0.0-2.0); Eosinophils # (auto) 0.2 10 ^3/uL (0-0.8); Mean Corpuscular Hgb Conc. 30.4 g/dL (32.0-36.0); Mean Corpuscular Volume 71.2 fL (80.0-100.0)
[2024-02-07 06:54] LABS: Eosinophils % (auto) 1.1 % (0.0-7.0); Hematocrit 27.3 % (36.0-46.0); Hemoglobin 8.3 g/dL (12.2-16.2); Lymphocytes # (auto) 1.7 10 ^3/uL (0.4-5.4); Mean Corpuscular Hemoglobin 21.6 pg (28.0-32.0); Monocytes % (auto) 6.2 % (0.0-12.0); Neutrophils # (auto) 12.7 10 ^3/uL (1.6-8.6); Neutrophils % (auto) 81.3 % (37.0-80.0); Nucleated Red Blood Cells % 0.3 %; Platelet Count (auto) 385 10^3/uL (140-450); Red Blood Cells 3.83 10^6/uL (4.0-5.20); Red Cell Distribution Width 22.5 % (11.8-14.3); White Blood Cell 15.6 10^3/uL (4.4-10.8)
[2024-02-07 07:42] LABS: Anisocytosis Slight; Hypochromia Slight; Platelet Estimate Adequate
[2024-02-07 08:04] LABS: Alanine Aminotransferase 49 U/L (7-40); Albumin 3.6 g/dL (3.2-4.8); Alkaline Phosphatase 180 U/L (46-116); Anion Gap 7 (5-15); Aspartate Aminotransferase 176 U/L (13-40); BUN/Creatinine Ratio 18.6 (10.0-20.0); Bilirubin, Total 0.5 mg/dL (0.2-1.0); Blood Urea Nitrogen 21 mg/dL (9-23); Calcium 8.5 mg/dL (8.7-10.4); Carbon Dioxide 19 mmol/L (20-31); Chloride 112 mmol/L (98-107); Glucose 112 mg/dL (74-106); Potassium 3.9 mmol/L (3.5-5.1); Sodium 138 mmol/L (136-145); Total Protein 6.6 g/dL (5.7-8.2)
[2024-02-07] MEDS: cefTRIAXone 1GM/50ML D5W 50 ML IV SCH (09:29)
[2024-02-07] MEDS: LIDOCAINE 5% TOPICAL PATCH TOP SCH (10:00)
--- NOTE | 2024-02-07 15:23 | DVHPN2 ---
Progress Note - Dictate Date Seen: Feb 07, 2024 Medical Necessity Reason Pt with a Central, PICC or Fol: Yes The following are medically ne: Stanley Catheter Subjective BP stable now not on pressors vital signs Vital Sign Date Time Temp Pulse Resp B/P (MAP) Pulse Ox O2 Delivery O2 Flow Rate FiO2 02/07/24 15:16 75 18 132/63 02/07/24 14:30 98.6 96 98.6 02/07/24 07:35 Nasal Cannula* 2 28 Total Intake and Output 02/06/24 02/06/24 02/07/24 15:00 23:00 07:00 Intake Total 1662.5 ml 1100 ml 600 ml Output Total 1800 ml 1800 ml Balance 1662.5 ml -700 ml -1200 ml medications Current Medications Medications Dose Ordered Sig/Sissy Route Start Time Stop Time Status Last Admin Dose Admin Acetaminophen/ Hydrocodone Bitart 1 tab Q4HP PRN PO 02/06/24 07:30 02/07/24 14:22 1 TAB Ondansetron HCl 4 mg Q4HP PRN IV 02/06/24 07:30 02/07/24 15:16 4 MG Docusate Sodium 100 mg BIDPRN PRN PO 02/06/24 07:30 Nitroglycerin 0.4 mg Q5MINP PRN SL 02/06/24 07:45 Morphine Sulfate 2 mg Q30M PRN IV 02/06/24 07:45 02/06/24 22:15 2 MG Sodium Chloride 1,000 ml @ 125 mls/hr Q8H IV 02/06/24 09:15 02/07/24 01:15 125 MLS/HR Acetaminophen 500 mg Q6HP PRN PO 02/06/24 10:15 02/06/24 15:45 500 MG Lidocaine 1 patch DAILY TOP 02/07/24 10:00 Morphine Sulfate 2 mg Q4HPRN PRN IV 02/07/24 06:30 02/07/24 15:16 2 MG Ceftriaxone Sodium 50 ml @ 100 mls/hr DAILY@09 IV 02/07/24 09:00 02/07/24 09:29 100 MLS/HR objective obese female NAD BP improved stanley urine cloudy trace ankle edema laboratory and microbiology Laboratory Tests 02/07/24 06:23 Test 02/07/24 06:23 Range/Units Serum Glucose 112 H 74-106 mg/dL Assessment/Plan Acute kidney injury prerenal baseline renal function from [facility] 2 weeks ago is normal sepsis due to UTI anemia severe Iron deficiency IVF IV ABX Gema is resolving currently has stanley r/o GIB Plan discussed with: Patient CC Plasma Assessment Blood Product Administration S: [id number] EDEN MCINTOSH MD Feb 07, 2024 15:23
--- NOTE | 2024-02-07 15:51 | DVHPNRES ---
Progress Note Date Seen: Feb 07, 2024 Resident Creating Document: RONAL RAMON RESIDENT Has the PT tested + for MRSA If YES, has PT been informed?: No Medical Necessity Reason Pt with a Central, PICC or Fol: Yes The following are medically ne: Jaramillo Catheter Subjective Review of Systems This is a 48-year-old female with past medical history of hypertension, CKD and spine surgery in november of 2023 not specifying the reason. The patient presented to the ED brought by her daughter due to altered level of consciousness. Per EMS, family member noted that the patient was acting abnormal, sleeping through all the day and it appeared confused at times to them. Initial labs showed a WBC of 15.6, acute transaminitis AST 176, ALT 49. Initial chest x-ray was showing mild vascular congestion. We ordered a CT scan of the head without contrast which came back unremarkable with no acute infarct or hemorrhage at this time. Renal ultrasound was performed and was showing no hydronephrosis and normal-appearing kidneys. Urinalysis came back positive suggesting UTI reason why the patient was started on IV ceftriaxone and IV fluids. Last echocardiogram also showed an LVEF of 55% with grade 1 diastolic dysfunction. We ordered urine culture and admitted the patient for further assessment and management. Patient seen and examined at bedside. In my examination, patient was awake and alert, oriented in person, place and time. The patient was able to maintain current conversations but reasoning and speech are kind of slow. Tried to contact the daughter via phone but she did not picker and sorter load and unload on multiple times. Urinalysis came back positive suggesting UTI and all other studies and tests were grossly unremarkable. We are still waiting for urine culture but we started the patient on IV ceftriaxone, IV fluids and pain medication. ROS Constitutional: Denies weight loss, fever and chills. HEENT: Denies changes in vision and hearing. Respiratory: Denies shortness of breath and cough Cardiovascular: Denies chest discomfort or palpitations GI: Denies abdominal pain, nausea, vomiting and diarrhea. : Denies dysuria and urinary frequency. Musculoskeletal: Reports moderate to severe back pain which patient mention is chronic and that she had back surgery on November of this year. Denies myalgias and joint pain Skin: Denies rash and pruritus. Neurological: Denies dizziness, headache, vision or hearing problems Objective vital signs Vital Sign Date Time Temp Pulse Resp B/P (MAP) Pulse Ox O2 Delivery O2 Flow Rate FiO2 10/26/24 15:16 75 18 132/63 02/07/24 14:30 96 Nasal Cannula* 2 28 02/07/24 14:30 98.6 98.6 Total Intake and Output 02/06/24 02/06/24 02/07/24 15:00 23:00 07:00 Intake Total 1662.5 ml 1100 ml 600 ml Output Total 1800 ml 1800 ml Balance 1662.5 ml -700 ml -1200 ml medications Current Medications Medications Dose Ordered Sig/Sissy Route Start Time Stop Time Status Last Admin Dose Admin Acetaminophen/ Hydrocodone Bitart 1 tab Q4HP PRN PO 02/06/24 07:30 02/07/24 14:22 1 TAB Ondansetron HCl 4 mg Q4HP PRN IV 02/06/24 07:30 02/07/24 15:16 4 MG Docusate Sodium 100 mg BIDPRN PRN PO 02/06/24 07:30 Nitroglycerin 0.4 mg Q5MINP PRN SL 02/06/24 07:45 Morphine Sulfate 2 mg Q30M PRN IV 02/06/24 07:45 02/06/24 22:15 2 MG Sodium Chloride 1,000 ml @ 125 mls/hr Q8H IV 02/06/24 09:15 02/07/24 01:15 125 MLS/HR Acetaminophen 500 mg Q6HP PRN PO 02/06/24 10:15 02/06/24 15:45 500 MG Lidocaine 1 patch DAILY TOP 02/07/24 10:00 Morphine Sulfate 2 mg Q4HPRN PRN IV 02/07/24 06:30 02/07/24 15:16 2 MG Ceftriaxone Sodium 50 ml @ 100 mls/hr DAILY@09 IV 02/07/24 09:00 02/07/24 09:29 100 MLS/HR Examination Physical Examination General: Patient alert and oriented, speech is slightly slow but coherent. Following commands HEENT: Normocephalic, atraumatic, moist mucous membranes Respiratory/pulmonary: Clear lungs bilaterally, no associated crackles or wheezes. Cardiovascular: Normal heart sounds S1 and S2 with no associated murmurs. Patient has lower back pain and has a surgical scar in the center of the back consistent with recent surgery. Abdomen: Abdomen nondistended, there is no pain to palpation in any of the abdominal quadrants, no palpable masses. Extremities: Patient has mod/severe pain at th right knee with crepitus on movement. There is no peripheral edema present at the lower extremities. Peripheral Pulses: 3+ Radial (R). 3+ Radial (L). 3+ Dorsalis pedis (R). 3+ Dorsalis pedis(L) Skin: No rashes or pruritus, there is no sacral edema present at this time. Neurological: Intact cranial nerves with no focal neurologic deficits laboratory and microbiology Laboratory Tests 02/07/24 06:23 Test 02/07/24 06:23 Range/Units Serum Glucose 112 H 74-106 mg/dL Microbiology Date/Time Source Procedure Growth Status 02/06/24 13:52 Blood Blood Culture - Preliminary NO GROWTH AFTER 24 HOURS OF INCUBATION. Resulted 02/06/24 08:00 Voided Urine Urine Culture - Preliminary Resulted Problem List/Assessment/Plan Problem List/Assessment/Plan Assessment/Plan Acute metabolic/toxic encephalopathy likely in the setting of sepsis -per EMS, daughter stated that the patient over medicate herself with pain medications, urine drug screen came back negative -ordered ammonia levels -Lactic acid was 1.4 Sepsis likely due to UTI -U/A came back suggestive of UTI -continue IV ceftriaxone -continue IV fluids at this time -no need of vasopressors at this time UTI -continue antibiotics as described above -pain medications as needed Severe microcytic hypochromic anemia -iron panel and ferritin were ordered -total iron was decreased, TIBC was decreased and ferritin was normal. Most likely due to anemia of chronic diseases -ordered stool occult test KIET prerenal likely hemodynamically mediated due to sepsis -last creatinine was 1.13 and BUN 21 -continue IV fluids -avoid nephrotoxic agents -monitor kidney function History of spine surgery -surgery performed on November of [address] fuentes -patient did not specified reason and type of surgery Osteoarthritis of the right knee -patient stated that was following up as an outpatient for possible knee replacement Morbid obesity Goals of care discussed with the patient at bedside for >23min, FULL CODE Tried to contact daughter via phone but unable on multiple attempts Plan discussed with Dr. Ramirez Plan discussed with: Patient My Orders My Orders Orders - RONAL RAMON RESIDENT Procedure Category Date Status Time Stool Occult Blood LAB 02/07/24 Logged 08:56 Ceftriaxone 1gm/50ml PHA 02/07/24 In Process D5w (Rocephin) 09:00 Transfer Orders XFER 02/07/24 Transmitted 10:53 CC Plasma Assessment Blood Product Administration S: 0225 Date of Service: Feb 07, 2024 Billing Provider: MARITZA RAMIREZ MD Common Visit Codes: [id number] INP/OBS CARE(HIGH) RONAL RAMON RESIDENT Feb 07, 2024 15:51 MARITZA RAMIREZ MD Feb 07, 2024 22:06
[2024-02-07] MEDS ORDERED: CYCL-839 PO (18:57)
[2024-02-07] MEDS ORDERED: PERCOT PO (18:57)
[2024-02-07] MEDS ORDERED: CYCLOBENZAPRINE HCL 10 MG TAB PO PRN (21:30)
== END 2024-02-07 23:25 | disposition left against medical advice (07) | DRG 720 ==
LOC: EDBD 02:33 → ER 02:33 → TELE 07:41 → TELE-CENTR 02-07 14:31
PROVIDERS: ADMIT Nurse Practitioner Family; ATTEND Nurse Practitioner Family
PROC: 30233N1 Transfusion of Nonautologous Red Blood Cells into Peripheral Vein, Percutaneous Approach (ICD-10-PCS; principal; 2024-02-06)
DX: A41.9 Sepsis, unspecified organism (principal); N17.0 Acute kidney failure with tubular necrosis; G93.41 Metabolic encephalopathy; I95.89 Other hypotension; D50.9 Iron deficiency anemia, unspecified; Z53.29 Procedure and treatment not carried out because of patient's decision for other reasons; N18.9 Chronic kidney disease, unspecified; I12.9 Hypertensive chronic kidney disease with stage 1 through stage 4 chronic kidney disease, or unspecified chronic kidney disease; E66.01 Morbid (severe) obesity due to excess calories; N39.0 Urinary tract infection, site not specified; M17.0 Bilateral primary osteoarthritis of knee; E86.1 Hypovolemia; Z88.0 Allergy status to penicillin; Z74.01 Bed confinement status; Z79.899 Other long term (current) drug therapy; Z68.42 Body mass index [BMI] 45.0-49.9, adult; Z88.1 Allergy status to other antibiotic agents; Z88.8 Allergy status to other drugs, medicaments and biological substances
CPT/HCPCS: 36415; 70450; 71045; 76775; 80053; 80061; 80307; 81001; 82140; 82306; 82570; 82607; 82728; 82746; 82962; 83036; 83540; 83550; 83605; 83615; 83735; 83880; 84100; 84156; 84300; 84443; 84484; 85014; 85018; 85025; 85045; 85384; 85610; 85730; 86850; 86900; 86901; 86920; 87040; 87086; 87088; 87186; 93005; 93306; 99291; G0378; J0692; J2405